=== PATIENT | male | born 1975 | race Two or more races ===

== ENCOUNTER 2023-02-12 18:09 | Emergency (ER) | payer SELFPAY ==
--- NOTE | ~2023-02-12 | US_ITS ---
EXAMINATION: US ABDOMEN LIMITED CLINICAL INFORMATION: Right upper quadrant pain. COMPARISON: None available. TECHNIQUE: Real-time imaging of the right upper quadrant abdominal viscera. FINDINGS: PANCREAS: Visualized portions unremarkable; tail obscured by interposed bowel gas. LIVER: Normal. The liver is normal in size. The liver contour is normal. Parenchymal echogenicity is normal. No focal hepatic lesion. There is no intrahepatic biliary duct dilatation seen. GALLBLADDER: There is a 4 mm polyp in the gallbladder. No gallbladder wall thickening or pericholecystic fluid. Sonographic Osborne sign is negative. COMMON BILE DUCT: Normal in caliber measuring 0.3 cm in diameter. RIGHT KIDNEY: Normal. No hydronephrosis. No renal calculi or focal parenchymal lesions. The kidney measures 11.2 cm in maximum dimension. FREE FLUID: None. US/US abdomen limited IMPRESSION: * No acute findings to explain the patient's symptomatology. * Incidental 4 mm polyp in the gallbladder. These almost invariably represent cholesterolosis, which is a benign entity. Various algorithms exist regarding management of incidentally detected gallbladder polyps. A follow-up ultrasound in 1 year is considered appropriate to confirm stability of this finding
[2023-02-12 18:26] VITALS: BP 137/87; PULSE 100; RESP 18; TEMP 36.7; O2SAT 99; BMI 27.4
--- NOTE | 2023-02-12 18:26 | ED.GENADULT ---
HPI - General Adult General Chief complaint: Abdominal Pain Stated complaint: abd pain Time Seen by Provider: 02/13/23 00:50 Source: patient Mode of arrival: ambulatory Limitations: no limitations History of Present Illness HPI narrative: Patient with diffuse abdominal pain with nausea vomiting diarrhea for last 2 days vomiting more than 15 times and diarrhea 6-7 times no recent travel no recent sea food intake no fever pain is diffuse in abdomen no recent antibiotic intake no fever or chills Related Data Previous Rx's Medication Instructions Recorded dicyclomine 20 mg tablet 20 mg PO QID PRN abdominal pain 02/13/23 #20 tabs ondansetron 4 mg disintegrating 4 mg PO Q6-8H PRN nausea and 02/13/23 tablet vomiting #10 tabs Allergies Allergy/AdvReac Type Severity Reaction Status Date / Time No Known Allergies Allergy Verified 02/12/23 18:27 Review of Systems Review of Systems: Yes all other systems are reviewed and are negative PMFSH Social History Social History Alcohol intake: former Smoked in Last 30 Days: No Advance Directives: No Advance Directives Information Provided: No Physical Exam ED Vital Signs: Vital Signs - 24 hr 02/12/23 18:26 02/13/23 00:32 Temperature 98.1 F 98.8 F Pulse Rate 100 77 Respiratory Rate 18 18 Blood Pressure 137/87 155/101 H Pulse Oximetry 99 99 Oxygen Delivery Method Nasal Cannula Room Air BMI result Body Mass Index 27.4 Appearance: Alert. Oriented X3. Actively vomiting Eyes: PERRLA, No Nystagmus no pyloric ENT: Pharynx normal. Oral Mucosa moist Neck: Normal inspection. Neck supple. CVS: Normal heart rate and rhythm. Pulses normal. Respiratory: No respiratory distress. Equal air entry bilateral, no wheezing/rales/rhonchi Abdomen: Soft , diffuse tenderness no rebound tenderness or guarding Bowel sounds are present, no mass palpable, no CVA tenderness Skin: Skin warm and dry. Normal skin color. Normal skin turgor. Extremities: No lower extremity edema. No calf tenderness Neuro: Oriented X 3. No motor deficit. Course Course Course Narrative: This is a rapid medical exam: Additional HPI, ROS, PE not included below will be deferred to primary provider. Patient is a 47-year-old male presenting to the emergency department with complaint of nausea, vomiting, and diarrhea since Wednesday night. Generalized abdominal pain. Unable to tolerate fluids. Lives alone, no other sick contacts. Plan: labs, UA Medications Administered Discontinued Medications Generic Name Dose Route Start Last Admin Trade Name Dashawn PRN Reason Stop Dose Admin Sodium Chloride 1,000 mls @ 999 mls/hr 02/13/23 01:04 02/13/23 02:47 Ns IV 02/13/23 02:04 Infused .Q1H1M ONE Infusion Sodium Chloride 1,000 mls @ 999 mls/hr 02/13/23 01:05 02/13/23 03:49 Ns IV 02/13/23 02:05 Infused .Q1H1M ONE Infusion Morphine Sulfate 4 mg 02/13/23 02:09 02/13/23 02:12 Morphine Sulfate 4 Mg/Ml Cartridge IVPUSH 02/13/23 02:10 4 mg ONCE ONE Administration Protocol Ondansetron HCl 4 mg 02/13/23 01:04 02/13/23 01:21 Ondansetron Hcl 4 Mg/2 Ml Vial IVPUSH 02/13/23 01:05 4 mg ONCE ONE Administration Medical Decision Making Medical Decision Making [facility] Narrative: Patient has slight leukocytosis with gastroenteritis ultrasound of the abdomen was negative for acute seen 4 mm polyp nonobstructive. Osborne sign was negative patient feeling better not taking p.o. fluids will discharge patient home Differential Diagnosis Differential Diagnoses: The differential diagnosis associated with the presentation includes Gastroenteritis/pancreatitis/cholecystitis/gastritis Lab Data [facility] Lab Attestation statement: I reviewed the patient's lab results. 02/12/23 20:42 02/12/23 20:42 Labs: Lab Results 02/12/23 02/12/23 02/12/23 Range/Units 20:42 20:42 20:42 WBC 12.4 H (4.8-10.8) X10*3/uL RBC 5.73 (4.60-5.80) X10*6/uL Hgb 16.2 (14.0-18.0) g/dl Hct 46.5 (42.0-52.0) % MCV 81.2 (80.0-98.0) fL MCH 28.3 (27.0-33.0) pg MCHC 34.8 (31.0-36.0) g/dl RDW 13.1 (11.0-16.0) % Plt Count 311 (160-400) X10*3/uL MPV 10.2 (9.4-12.4) fL Immature Gran % (Auto) 0.4 (0.0-0.4) % Neut % (Auto) 69.0 (45-73) % Lymph % (Auto) 20.5 (20-40) % [place] % (Auto) 9.4 (2-11) % Eos % (Auto) 0.2 (0-4) % Baso % (Auto) 0.5 (0-2) % Lymph # (Auto) 2.6 (1.2-4.9) X10*3/uL [place] # (Auto) 1.2 (0.1-1.2) X10*3/uL Eos # (Auto) 0.0 (0.0-0.4) X10*3/uL Baso # (Auto) 0.1 (0.0-0.2) X10*3/uL Abs Immat Gran (auto) 0.05 H (0.00-0.03) X10*3/uL Absolute Neuts (auto) 8.6 H (2.0-8.3) x10*3/uL Absolute Nucleated RBC 0.000 (0.0-0.012) X10*3/uL Nucleated RBC % (auto) 0.0 (0.0-0.2) /100WBC Sodium 138 (135-145) mmol/L Potassium 3.8 (3.3-5.1) mmol/L Chloride 100 (96-108) mmol/L Carbon Dioxide 24 (22-29) mmol/L Anion Gap 18 (12-20) BUN 24 H (9-16) mg/dL Creatinine 0.83 (0.5-1.4) mg/dL Estim Creat Clear Calc 108.7 Estimated GFR > 60 Random Glucose 117 H (60-115) mg/dL Lactic Acid (0.5-2.0) mmol/L Calcium 9.9 (8.4-10.2) mg/dL Magnesium 2.7 H (1.6-2.6) mg/dL Total Bilirubin 1.2 H (0.0-1.0) mg/dL AST 48 H (5-37) U/L ALT 47 H (0-40) U/L Alkaline Phosphatase 68 (39-117) U/L Total Protein 7.7 (6.5-8.0) g/dL Albumin 4.7 (3.5-5.0) g/dL Lipase 25 (8-78) U/L Urine Color Urine Appearance Urine pH (5.0-9.0) Ur Specific [place] (1.005-1.025) Urine Protein (Neg-Trace) mg/dL Urine Glucose (UA) (Negative) mg/dL Urine Ketones (Negative) mg/dL Urine Blood (Negative) Urine Nitrite (Negative) Ur Leukocyte Esterase (Negative) COVID-19 (GORAN) (Negative) COVID-19 Clin Com Influenza Type A (MICHELLE) Negative (Negative) Influenza Type B (MICHELLE) Negative (Negative) Influenza A & B Note See Note 02/12/23 02/13/23 02/13/23 Range/Units 20:42 00:51 01:12 WBC (4.8-10.8) X10*3/uL RBC (4.60-5.80) X10*6/uL Hgb (14.0-18.0) g/dl Hct (42.0-52.0) % MCV (80.0-98.0) fL MCH (27.0-33.0) pg MCHC (31.0-36.0) g/dl RDW (11.0-16.0) % Plt Count (160-400) X10*3/uL MPV (9.4-12.4) fL Immature Gran % (Auto) (0.0-0.4) % Neut % (Auto) (45-73) % Lymph % (Auto) (20-40) % [place] % (Auto) (2-11) % Eos % (Auto) (0-4) % Baso % (Auto) (0-2) % Lymph # (Auto) (1.2-4.9) X10*3/uL [place] # (Auto) (0.1-1.2) X10*3/uL Eos # (Auto) (0.0-0.4) X10*3/uL Baso # (Auto) (0.0-0.2) X10*3/uL Abs Immat Gran (auto) (0.00-0.03) X10*3/uL Absolute Neuts (auto) (2.0-8.3) x10*3/uL Absolute Nucleated RBC (0.0-0.012) X10*3/uL Nucleated RBC % (auto) (0.0-0.2) /100WBC Sodium (135-145) mmol/L Potassium (3.3-5.1) mmol/L Chloride (96-108) mmol/L Carbon Dioxide (22-29) mmol/L Anion Gap (12-20) BUN (9-16) mg/dL Creatinine (0.5-1.4) mg/dL Estim Creat Clear Calc Estimated GFR Random Glucose (60-115) mg/dL Lactic Acid 1.1 (0.5-2.0) mmol/L Calcium (8.4-10.2) mg/dL Magnesium (1.6-2.6) mg/dL Total Bilirubin (0.0-1.0) mg/dL AST (5-37) U/L ALT (0-40) U/L Alkaline Phosphatase (39-117) U/L Total Protein (6.5-8.0) g/dL Albumin (3.5-5.0) g/dL Lipase (8-78) U/L Urine Color Yellow Urine Appearance Clear Urine pH 7.5 (5.0-9.0) Ur Specific [place] 1.010 (1.005-1.025) Urine Protein Negative (Neg-Trace) mg/dL Urine Glucose (UA) Negative (Negative) mg/dL Urine Ketones 15 (Negative) mg/dL Urine Blood Negative (Negative) Urine Nitrite Negative (Negative) Ur Leukocyte Esterase Negative (Negative) COVID-19 (GORAN) Negative (Negative) COVID-19 Clin Com See Note Influenza Type A (MICHELLE) (Negative) Influenza Type B (MICHELLE) (Negative) Influenza A & B Note Discharge Plan Discharge Clinical Impression: Gastroenteritis Patient Disposition: Home, Self-Care Instructions: Gastroenteritis (ED) Additional Instructions: Drink plenty of fluids Medical for nausea and vomiting as prescribed Follow with PCP Prescriptions: New ondansetron 4 mg tablet,disintegrating 4 mg PO Q6-8H PRN (Reason: nausea and vomiting) Qty: 10 0RF dicyclomine 20 mg tablet 20 mg PO QID PRN (Reason: abdominal pain) Qty: 20 0RF Stand Alone Forms: Work/School Release Interventions: ED Discharge Assessment Last Done: 02/13/23 04:06 Discharge Date/Time: 02/13/23 04:07
[2023-02-12 20:48] LABS: MANUAL DIFF FLAG NO
[2023-02-12 21:05] LABS: IDNOW Serial# 08D9AD1C; Influenza A Negative (Negative); Influenza B2 Negative (Negative)
[2023-02-12 21:09] LABS: COVID-19 Test Negative (Negative); IDNOW Serial# BCCEAD1C
[2023-02-12 21:10] LABS: Basophils Absolute Auto 0.1 X10*3/uL (0.0-0.2); Basophils Percent Auto 0.5 % (0-2); Eosinophils Percent Auto 0.2 % (0-4); Hematocrit 46.5 % (42.0-52.0); Hemoglobin 16.2 g/dl (14.0-18.0); Imm Gran Abs Auto 0.05 X10*3/uL (0.00-0.03); Imm Gran Pct Auto 0.4 % (0.0-0.4); Lymphocytes Absolute Auto 2.6 X10*3/uL (1.2-4.9); Lymphocytes Percent Auto 20.5 % (20-40); Mean Corpuscular HGB Conc 34.8 g/dl (31.0-36.0); Mean Corpuscular Hemoglobin 28.3 pg (27.0-33.0); Mean Corpuscular Volume 81.2 fL (80.0-98.0); Mean Platelet Volume 10.2 fL (9.4-12.4); Monocytes Absolute Auto 1.2 X10*3/uL (0.1-1.2); Monocytes Percent Auto 9.4 % (2-11); Neutrophils Absolute Auto 8.6 x10*3/uL (2.0-8.3); Platelet Count 311 X10*3/uL (160-400); Red Blood Count 5.73 X10*6/uL (4.60-5.80); Red Cell Distribution Width 13.1 % (11.0-16.0); White Blood Count 12.4 X10*3/uL (4.8-10.8)
[2023-02-12 21:46] LABS: Alanine Aminotransferase 47 U/L (0-40); Albumin Level 4.7 g/dL (3.5-5.0); Alkaline Phosphatase 68 U/L (39-117); Anion Gap 18 (12-20); Bilirubin Total 1.2 mg/dL (0.0-1.0); Blood Urea Nitrogen 24 mg/dL (9-16); Calcium 9.9 mg/dL (8.4-10.2); Carbon Dioxide 24 mmol/L (22-29); Chloride 100 mmol/L (96-108); Creatinine Clr Calc Pharmacy 108.7; Estimated Glomerular Filt Rate > 60; Glucose Random 117 mg/dL (60-115); Lipase 25 U/L (8-78); Magnesium 2.7 mg/dL (1.6-2.6); Potassium 3.8 mmol/L (3.3-5.1); Sodium 138 mmol/L (135-145); Total Protein 7.7 g/dL (6.5-8.0)
[2023-02-12 22:08] LABS: Aspartate Amino Transferase 48 U/L (5-37)
[2023-02-13 00:32] VITALS: BP 155/101; PULSE 77; RESP 18; TEMP 37.1; O2SAT 99
[2023-02-13 00:57] LABS: Appearance Urine Clear; Color Urine Yellow; Glucose Urine UA Negative (Negative); Leukocyte Esterase Urine Negative (Negative); Nitrite Urine Negative (Negative); PH 7.5 (5.0-9.0); Urine Blood Negative (Negative); Urine Ketones 15 mg/dL (Negative); Urine Protein Negative (Neg-Trace)
[2023-02-13] MEDS: ondansetron HCL 4 MG/2 ML VIAL IVPUSH (01:21)
[2023-02-13] MEDS: 0.9 % Sodium Chloride 1,000 ML 999 ML IV ×2 (01:22→02:13)
[2023-02-13 01:45] LABS: Lactic Acid 1.1 mmol/L (0.5-2.0)
[2023-02-13] MEDS: Morphine Sulfate 4 MG/ML CARTRIDGE IVPUSH (02:12)
== END 2023-02-13 04:07 | disposition home or self-care (01) ==
PROVIDERS: Registered Nurse Emergency; Emergency Provider Internal Medicine
DX: K52.9 Noninfective gastroenteritis and colitis, unspecified (principal); Z20.822 Contact with and (suspected) exposure to COVID-19; Z79.899 Other long term (current) drug therapy
CPT/HCPCS: 36415; 76705; 80053; 81003; 83605; 83690; 83735; 85025; 87502; 87635; 96361; 96374; 96375; 99284; J2270; J2405